=== PATIENT | male | born 1955 | race Caucasian/White ===

== ENCOUNTER 2021-09-19 10:08 | Emergency (ER) | payer MEDICARE ==
[2021-09-19 10:54] LABS: BASOPHIL 0.7 % (0-2); EOSINOPHIL 3.2 % (0-7); HCT 44.6 % (42.0-52.0); HGB 15.7 g/dl (13.2-18.0); LYMPHOCYTE 40.2 % (15-48); MCH 31.5 pg (25.0-31.0); MCHC 35.2 g/dL (32.0-36.0); MCV 89.6 fL (78.0-100.0); MONOCYTE 10.2 % (0-12); MPV 9.7 fL (6.0-9.5); NEUTROPHIL 45.5 % (41-80); NRBC 0; PLT 319 K/uL (150-400); RBC 4.98 M/uL (4.70-6.00); RDW 11.9 % (11.5-14.0); WBC 5.6 K/uL (4.0-10.5)
[2021-09-19 11:11] LABS: ALBUMIN 3.4 g/dL (3.4-5.0); BILIRUBIN - TOTAL 0.4 mg/dL (0.2-1.0); BUN/CREAT RATIO (CALC) 18.8 RATIO; CREATININE 0.8 mg/dL (0.67-1.17); GLOBULIN (CALCULATION) 4.1 g/dL; POTASSIUM 3.6 mmol/L (3.5-5.1); TOTAL PROTEIN 7.5 g/dL (6.4-8.2)
[2021-09-19 11:29] LABS: BILIRUBIN NEGATIVE (NEGATIVE); BLOOD NEGATIVE Ery/uL (NEGATIVE); CLARITY CLEAR (CLEAR); COLOR YELLOW (YELLOW); GLUCOSE (U) 3+ mg/dL (NORMAL); LEUKOCYTES NEGATIVE Leu/uL (NEGATIVE); NITRITE NEGATIVE (NEGATIVE); PROTEIN NEGATIVE (NEGATIVE); SPECIFIC GRAVITY 1.025 (1.001-1.030); UROBILINOGEN 0.2 mg/dL (0.2-1.0)
== END 2021-09-19 12:41 | disposition home or self-care (01) ==
LOC: FER 10:08
PROVIDERS: Emergency Medicine
DX: R20.2 Paresthesia of skin (principal); E11.65 Type 2 diabetes mellitus with hyperglycemia; I10 Essential (primary) hypertension; Z88.6 Allergy status to analgesic agent; Z91.013 Allergy to seafood; Z79.84 Long term (current) use of oral hypoglycemic drugs; Z79.899 Other long term (current) drug therapy; Z28.310 Unvaccinated for COVID-19
CPT/HCPCS: 36415; 70450; 71046; 80053; 81001; 85025